=== PATIENT | male | born 2005 | race Asian ===

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

== ENCOUNTER 2023-07-18 15:45 | Emergency (ER) | payer OTHER, SELFPAY ==
[2023-07-18 15:46] VITALS: BP 122/71; PULSE 95; RESP 18; TEMP 36.6; O2SAT 100
--- NOTE | 2023-07-18 16:09 | EDS_ITS ---
HPI History of Present Illness Chief Complaint: Nausea/Vomiting Detail of Chief Complaint: Black stool Informant: patient Narrative Narrative: Patient presents secondary to concern for GI bleed with black stool. He states in the past couple weeks he had some intermittent nausea and vomiting. He states it was more like he got very gassy and would belch and vomit some with that. He has not vomited in the last 3 or 4 days but noted his stool turned green in color at that time. This morning he had dark black stool. He was sent to the ER to evaluate for possible GI bleed. Patient states when he was in [place] he was seen by a doctor secondary to increased gas. He was told he had reflux disease and was given a short course of antacids. He states this did not really help his symptoms so he never had it refilled. PFSH PFSH Medical History no medical history no medical history Home Medications amoxicillin 500 mg capsule 500 mg PO TID #21 caps 06/26/22 [Rx Last Taken Unknown] Allergy/AdvReac Type Severity Reaction Status Date / Time No Known Allergies Allergy Verified 07/18/23 15:46 Social History Smoking Status: Never smoker ROS ROS ED Constitutional Constitutional ED: Denies chills or fever(s) Eyes Eyes: Denies discharge from eye(s) ENT ENT ED: Denies discharge from eye(s), rhinorrhea or sore throat Cardiovascular Cardiovascular: Denies chest pain Respiratory/Chest Respiratory/Chest: Denies cough or dyspnea Gastrointestinal Gastrointestinal: Reports nausea and vomiting; Denies abdominal pain or diarrhea Musculoskeletal Musculoskeletal: Denies back pain or extremity pain Integumentary Denies Abrasions or rash Neurologic Neurologic: Denies headache(s) or weakness Psychiatric Psychiatric: Denies anxiety or depression Allergic/Immunologic Allergic/Immunologic ED: Denies lip swelling or urticaria EXAM Physical Exam Const Vital Signs: 07/18/23 15:46 Temperature 98 F Temperature Source Temporal Pulse Rate 95 Respiratory Rate 18 Blood Pressure 122/71 H Blood Pressure Mean 88 Pulse Ox 100 Oxygen Delivery Method Room Air Positive well nourished and well developed General Appearance ED: well developed HEENT Reports moist mucous membranes Eyes EOMs intact bilaterally Chest Wall inspection of chest normal and palpation of chest normal Resp normal respiratory effort and clear to auscultation bilaterally Cardio regular rate and regular rhythm GI non-tender Palpation: soft Extremity normal to inspection Neuro oriented x3 and no sensory deficits noted Motor Exam: strength 5/5 throughout Psych mental status grossly normal Skin no rashes or lesions noted MDM MDM MDM Narrative Medical decision making narrative: IV line established. Labwork obtained to evaluate for leukocytosis, anemia, and electrolyte derangement. Lab Data Labs: Laboratory Results - last 24 hr 07/18/23 16:15 WBC 8.4 RBC 5.17 Hgb 14.9 Hct 46.2 MCV 89.4 MCH 28.8 MCHC 32.3 RDW Std Deviation 37.2 RDW Coeff of Ramu 11.5 L Plt Count 263 MPV 8.6 Immature Gran % (Auto) 0.200 Neut % (Auto) 71.7 H Lymph % (Auto) 18.8 L [place] % (Auto) 7.8 Eos % (Auto) 0.8 Baso % (Auto) 0.7 Absolute Neuts (auto) 6.0 Absolute Lymphs (auto) 1.58 Nucleated RBC % 0 Sodium 138 Potassium 4.0 Chloride 105 Carbon Dioxide 27.0 Anion Gap 6 BUN 16 Creatinine 1.19 Est GFR (MDRD) Af Amer 100 Est GFR (MDRD) Non-Af 83 BUN/Creatinine Ratio 13.4 Glucose 100 Calcium 9.0 Total Bilirubin 1.00 Direct Bilirubin 0.33 H AST 23 ALT 22 Alkaline Phosphatase 97 Total Protein 7.7 Albumin 3.9 Globulin 3.8 Treatment and Re-Evaluation :: CBC was normal white count 8.4 with a hemoglobin of 14.9. Chemistry studies are unremarkable. BUN is normal at 16. LFTs reveal mild bump in direct bilirubin of 0.33. Otherwise values are normal. Stool sample was provided. This did test negative for blood. Test results are all discussed with the patient. He did start isotretinoin for acne in March. He is wondering if some of these symptoms he is having might be side effects of the medication. He also reports feeling emotionally numb and having difficulty processing things. We did review the common side effects of this medication together. I did recommend he speak with his prescribing doctor about this to see if he could stop it or if he needed to be tapered off of it. I will give him a copy of his lab work here as he is planning to talk to his doctor in [place] about this medication. Return instructions were provided. Discharge Plan Triage Chief Complaint: Nausea/Vomiting Other Complaint: GI Bleed ED Provider: Naomi Benito Dx/Rx/DC Orders Clinical Impression: Dark stools Prescriptions: No Action amoxicillin 500 mg capsule 500 mg PO TID Qty: 21 0RF Primary Care Provider: Care Physician,No Primary Referrals: Care Physician,No Primary [Primary Care Provider] - Activity Restrictions/Additional Instructions: As discussed, your testing does not indicate any evidence of bleeding from an ulcer, anemia, recurrent blood in your stool. Please follow-up with your physician as discussed. May return for further evaluation for any additional concerns should they arise. Disposition Disposition: Home, Self Care
[2023-07-18 16:21] LABS: Absolute Lymphocyte Count 1.58 X10^3/uL (0.83-4.51); Basophil# 0.06 X10^3/uL; Basophil% 0.7 % (0-1); Eosinophil# 0.07 X10^3/uL; Eosinophils% 0.8 % (0-5); Hematocrit 46.2 % (40-54); Hemoglobin 14.9 g/dL (13.0-16.5); Lymphocyte # 1.58 X10^3/ul (0.83-4.51); Lymphocyte % 18.8 % (19-41); Mean Corp Hgb Conc 32.3 g/dL (32-36); Mean Corpuscular Hgb 28.8 pg (27.0-32.0); Mean Corpuscular Volume 89.4 fL (80-94); Mean Platelet Vol. 8.6 fl (6.2-12.0); Monocyte# 0.66 X10^3/uL; Monocyte% 7.8 % (0-10); NRBC Flagged by Analyzer 0 % (0-5); Neutrophil # 6.02 X10^3/uL (2.7-7.7); Neutrophil % 71.7 % (47-70); Platelet Count 263 K/mm3 (150-450); RBC Distribution Width CV 11.5 % (11.6-14.6); RBC Distribution Width SD 37.2 fl (35.1-43.9); Red Blood Count 5.17 M/mm3 (4.6-6.2); White Blood Count 8.4 K/mm3 (4.4-11.0)
[2023-07-18 16:37] LABS: AST(SGOT) 23 U/L (15-37); Alanine Aminotransfer ALT/SGPT 22 U/L (16-61); Albumin, Serum 3.9 g/dL (3.2-5.0); Alkaline Phosphatase 97 U/L (45-117); Anion Gap 6 (5-15); BUN 16 mg/dL (7-18); BUN/Creat Ratio 13.4 RATIO (10-20); Bilirubin, Direct 0.33 mg/dL (0.00-0.30); Chloride 105 mmol/L (98-107); Creatinine, Serum 1.19 mg/dL (0.70-1.30); EST Glomerular Filtration Rate 83 mL/min (>60); Est Glom Filt Rate - Afr Amer 100 mL/min (>60); Globulin 3.8 g/dL (2.2-4.2); Glucose 100 mg/dL (74-106); Protein, Total 7.7 g/dL (6.4-8.2); Sodium Level 138 mmol/L (136-145)
== END 2023-07-18 17:39 | disposition home or self-care (01) ==
PROVIDERS: Emergency Provider Emergency Medicine; Visit Provider Emergency Medicine
DX: K92.2 Gastrointestinal hemorrhage, unspecified (principal); R11.2 Nausea with vomiting, unspecified; Z79.899 Other long term (current) drug therapy
CPT/HCPCS: 80048; 80076; 82274; 85025; 99283; A4216

== ENCOUNTER → 2023-12-16 | Outpatient (CLI) | payer OTHER, SELFPAY ==
--- NOTE | 2023-12-16 09:34 | US_ITS ---
STUDY: ABDOMINAL ULTRASOUND - RIGHT UPPER QUADRANT REASON FOR VISIT: Male, 18 years old GASTROENTERITIS/N/V TECHNIQUE: Ultrasound evaluation of the right upper quadrant was performed with real-time and static redmond-scale imaging. TECHNICAL QUALITY: Adequate. COMPARISON: None. FINDINGS: Liver: The liver measures 16 cm. There is normal echogenicity of the liver. The bile ducts are within normal limits. There is hepatic color flow. The direction of portal flow is hepatopetal. There is no demonstrated mass lesion. Gallbladder: Normal distended gallbladder. The gallbladder wall measures 1.4 mm. There is a negative sonographic Olivera''s sign. There is no pericholecystic fluid. There are no gallstones. Common Bile Duct (C.B.D.): The common bile duct measures 4.2 mm. Pancreas: Normal size of the head, body and tail of the pancreas. There is normal echogenicity of the pancreas. There is no demonstrated pancreatic mass or cyst. Right Kidney: Normal size of the right kidney. The right kidney measures 9.7 cm x 3.7 cm x 4.6 cm. Normal renal cortex. The right cortex measures 1.1 cm. There is no demonstrated renal mass or cyst. There is no right hydronephrosis. The spleen measures 10.3 cm x 3.1 cm x 2.8 cm. US/Abdomen Limited IMPRESSION: Normal right upper quadrant ultrasound examination. Electronically Signed: Ari De La Vega MD at 15:38 EDT ,
== END | disposition home or self-care (01) ==
LOC: US 09:32
PROVIDERS: Referring Provider Registered Nurse; Visit Provider Registered Nurse
DX: R10.11 Right upper quadrant pain (principal); K52.9 Noninfective gastroenteritis and colitis, unspecified; R11.2 Nausea with vomiting, unspecified
CPT/HCPCS: 76705

== ENCOUNTER 2025-06-15 09:02 | Emergency (ER) | payer OTHER, SELFPAY ==
[2025-06-15 09:03] VITALS: BP 117/89; PULSE 91; RESP 16; TEMP 36.5; O2SAT 99; BMI 18.3
--- NOTE | 2025-06-15 09:26 | EKG12_ITS ---
Test Reason : SYNCOPE
[2025-06-15] MEDS: 0.9% Normal Saline (1000mL) 1,000 ML 1000 ML IV (09:36)
--- NOTE | 2025-06-15 09:37 | EX.ED.DYSGE1 ---
HPI History of Present Illness Chief Complaint: Nausea/Vomiting Narrative Narrative: Patient is a 19-year-old male presenting to the emergency department for decreased appetite, nausea and vomiting for the past 4 to 5 days. Patient states that about a week ago he was placed on an antibiotic that he does not know the name of for hematuria and axillary lymphadenopathy. States he finished the antibiotic and shortly after had decreased appetite, nausea and vomiting daily. Denies any hematemesis. Denies any abdominal pain. States that yesterday he was in a dorm with his friends smoking marijuana which he does daily since summer when he stood up and shook his friend's hand and then felt lightheaded and told them that he needed to lie down. He syncopized and they caught him and sat him down on the couch. States this has happened 2 or 3 times in the past and was seen by a doctor and diagnosed with a syncopal episode. There was no seizure-like activity. He denies falling or any head trauma. Denies any fever or chills. Denies headache. Denies any focal neurologic deficits. Denies any family history of sudden cardiac . Denes chest pain. Reports mild SOB with ambulation after smoking. Denies history of PE or DVT. Denies any difficulty with bowel movements, denies constipation or diarrhea. PFSH [facility] Home Medications ?Medication ?Instructions ?Recorded ?Last Taken ?Type amoxicillin 500 mg capsule 500 mg PO TID #21 caps 06/26/22 Unknown Rx ondansetron 4 mg disintegrating 4 mg PO Q8H PRN PRN Nausea #10 tabs 06/15/25 Unknown Rx tablet Allergy/AdvReac Type Severity Reaction Status Date / Time No Known Allergies Allergy Verified 06/15/25 09:03 Social History Smoking Status: Never smoker ROS ROS ED ROS Narrative See HPI EXAM Physical Exam Narrative Exam Narrative: Vital signs: Reviewed General: Alert and oriented x 3. No acute distress HEENT: Head is normocephalic and atraumatic, sinuses nontender, pupils equal round and reactive. Nares are patent. Oropharynx and throat exams normal. Neck: Supple without lymphadenopathy nontender Cardiovascular: Regular rate and rhythm, no murmurs. No rubs or gallops. Normal S1 and S2 Respiratory: Clear to auscultation bilaterally. No wheezes, rales, rhonchi Abdominal: Soft and nontender. Normal bowel sounds. No guarding or rebound. Nonsurgical abdomen Extremities: No lower extremity edema. No tenderness. No bruising. Normal range of motion. Normal sensation. Skin: No rash or redness. Neurological: Cranial nerves II through XII are grossly intact. Normal strength and sensation. Normal cerebellar function The rest of the physical exam is unremarkable Const Vital Signs: 06/15/25 09:03 06/15/25 10:09 06/15/25 11:02 Temperature 97.7 F L Temperature Source Oral Pulse Rate 91 65 Pulse Rate [Lying] 95 Pulse Rate [Sitting (for 1 minute prior to obtaining)] 101 H Pulse Rate [Standing (for 1 minute prior to obtaining)] 74 Respiratory Rate 16 15 Blood Pressure 117/89 H 133/76 H Blood Pressure [Lying] 116/82 H Blood Pressure [Sitting (for 1 minute prior to obtaining)] 137/84 H Blood Pressure [Standing (for 1 minute prior to obtaining)] 136/79 H Blood Pressure Mean 98 95 Blood Pressure Mean [Lying] 93 Blood Pressure Mean [Sitting (for 1 minute prior to obtaining)] 101 Blood Pressure Mean [Standing (for 1 minute prior to obtaining)] 98 Pulse Ox 99 100 Oxygen Delivery Method Room Air Room Air 06/15/25 11:58 Temperature 97.8 F Temperature Source Pulse Rate 65 Pulse Rate [Lying] Pulse Rate [Sitting (for 1 minute prior to obtaining)] Pulse Rate [Standing (for 1 minute prior to obtaining)] Respiratory Rate 15 Blood Pressure 133/76 H Blood Pressure [Lying] Blood Pressure [Sitting (for 1 minute prior to obtaining)] Blood Pressure [Standing (for 1 minute prior to obtaining)] Blood Pressure Mean 95 Blood Pressure Mean [Lying] Blood Pressure Mean [Sitting (for 1 minute prior to obtaining)] Blood Pressure Mean [Standing (for 1 minute prior to obtaining)] Pulse Ox 100 Oxygen Delivery Method MDM MDM MDM Narrative Medical decision making narrative: Patient is a 19-year-old male presenting to the emergency department for decreased appetite, nausea and vomiting for the past 4 to 5 days. Patient was seen and examined. Vitals are stable. Patient resting in bed comfortably no acute distress. Fluid bolus and Zofran given for symptomatic control. Differential includes but is not limited to: Vasovagal episode, orthostatic hypotension, cannabis hyperemesis, viral illness, cardiac dysrhythmia. Given the patient's history and his recent nausea and vomiting with decreased appetite and p.o. intake the likely cause is orthostatic hypotension causing the syncopal episode. Fluid bolus and Zofran given for symptomatic control. EKG, chest x-ray and basic blood work including electrolytes were obtained. EKG shows sinus bradycardia at a rate of 59 with no ischemic changes. No evidence of Brugada or WPW explaining the syncopal episode. No dysrhythmia. CBC with no leukocytosis and normal hemoglobin. BMP with no significant abnormalities. Glucose within normal limits. Magnesium within normal limits. Chest x-ray reviewed by myself, no opacities, pneumothorax or widened mediastinum. Radiology read with hyperinflation, no focal infiltrate is seen. Patient was reevaluated. Tolerated po without difficulty. Updated on the negative labs and imaging. I will prescribe the patient Zofran for home to take as needed every 8 hours for nausea and vomiting. Instructed to drink lots of fluids. Recommended decreasing or abstaining from cannabis use given this may be causing his symptoms. He is agreeable with the plan. He was given primary care follow-up because he does not have a established primary care. Patient discharged from the Emergency Department. I do not feel that the patient's evaluation reveals any acute reason for admission at this time. I instructed them to either follow-up with their primary care physician or promptly return to the Emergency Department for reevaluation should symptoms worsen or new symptoms develop. I explained what symptoms would indicate the need to return to the emergency department. Shared decision making was used. The patient voiced understanding of the treatment plan and is agreeable with it. Clinical impression Nausea and vomiting Syncopal episode History & Record Review Discussion w/independent historian: Patient Lab Data Attestation: I reviewed the patient's lab results. Labs: Laboratory Results - last 24 hr 06/15/25 09:37 WBC 7.7 RBC 5.23 Hgb 15.5 Hct 46.6 MCV 89.1 MCH 29.6 MCHC 33.3 RDW Std Deviation 38.0 RDW Coeff of Ramu 11.8 Plt Count 307 MPV 8.4 Immature Gran % (Auto) 0.400 Neut % (Auto) 54.0 Lymph % (Auto) 32.4 [place] % (Auto) 9.1 Eos % (Auto) 3.3 Baso % (Auto) 0.8 Absolute Neuts (auto) 4.2 Absolute Lymphs (auto) 2.49 Nucleated RBC % 0 Sodium 137 Potassium 4.2 Chloride 100 Carbon Dioxide 28.0 Anion Gap 9 BUN 15 Creatinine 1.03 Estim Creat Clear Calc 106.99 Est GFR (MDRD) Non-Af 106 BUN/Creatinine Ratio 14.5 Glucose 101 H Calcium 9.5 Magnesium 2.2 Radiography Diagnostic Testing: Clinical Impression(s) from Imaging Studies Chest X-Ray 06/15/25 09:45 IMPRESSION: Hyperinflation. No focal infiltrate is seen. Reading Location: [id number] Discharge Plan Triage Chief Complaint: Nausea/Vomiting ED Provider: Guillermina Nye Dx/Rx/DC Orders Clinical Impression: Nausea & vomiting, Cannabis abuse, Episode of syncope Instructions: ED Cyclic Vomiting Syndrome, ED Fainting, Vagal Reaction, ED Vomiting (Adult) Prescriptions: New ondansetron 4 mg tablet,disintegrating 4 mg PO Q8H PRN PRN (Reason: Nausea) Qty: 10 0RF No Action amoxicillin 500 mg capsule 500 mg PO TID Qty: 21 0RF Primary Care Provider: Care Physician,No Primary Referrals: Jackson Szymanski MD [Med Staff - Active Staff, Family Practice] - As soon as possible Care Physician,No Primary [Primary Care Provider, Medical] Activity Restrictions/Additional Instructions: Take the Zofran every 8 hours as needed for nausea and vomiting. Continue drinking lots of fluids at home. Please decrease or abstain from marijuana use. This may be causing her symptoms. Your evaluation in the Emergency Department did not reveal any acute reason for admission. However, I want to emphasize that you may be early in the course of a disease process or illness even if it is not present. For this reason you should follow-up within 24 hours for reevaluation with either your primary care physician or if necessary back here in the Emergency Department. You should return to the Emergency Department immediately if your symptoms worsen or new symptoms develop. Print Language: Indian Disposition Disposition: Home, Self Care Discharge Date/Time: 06/15/25 12:01
[2025-06-15 09:45] LABS: Hematocrit 46.6 % (40-54); Hemoglobin 15.5 g/dL (13.0-16.5); Immature Granulocytes Count 0.030 X10^3/uL (0.0-0.0); Mean Corp Hgb Conc 33.3 g/dL (32-36); Mean Corpuscular Volume 89.1 fL (80-94); Mean Platelet Vol. 8.4 fl (6.2-12.0); NRBC Flagged by Analyzer 0 % (0-5); Platelet Count 307 K/mm3 (150-450); RBC Distribution Width CV 11.8 % (11.6-14.6); RBC Distribution Width SD 38.0 fl (35.1-43.9); Red Blood Count 5.23 M/mm3 (4.6-6.2); White Blood Count 7.7 K/mm3 (4.4-11.0)
--- NOTE | 2025-06-15 09:45 | RAD_ITS ---
PROCEDURE: RAD/Chest PA and Lateral
[2025-06-15 10:06] LABS: Anion Gap 9 (5-15); BUN 15 mg/dL (4-19); BUN/Creat Ratio 14.5 RATIO (10-20); Calcium,Total 9.5 mg/dL (7.6-11.0); Carbon Dioxide 28.0 mmol/L (21.0-32.0); Chloride 100 mmol/L (98-108); Estimated Creatinine Clearance 106.99 ml/min (50-250); Glucose 101 mg/dL (70-99); Magnesium 2.2 mg/dL (1.5-2.2); Potassium 4.2 mmol/L (3.3-5.1)
[2025-06-15 10:09] VITALS: BP 116/82; BP 136/79; BP 137/84; PULSE 101; PULSE 74; PULSE 95
[2025-06-15 11:02] VITALS: BP 133/76; PULSE 65; RESP 15; O2SAT 100
[2025-06-15 11:58] VITALS: BP 133/76; PULSE 65; RESP 15; TEMP 36.6; O2SAT 100
== END 2025-06-15 12:01 | disposition home or self-care (01) ==
PROVIDERS: Emergency Provider Student in an Organized Health Care Education/Training Program; Visit Provider Student in an Organized Health Care Education/Training Program
DX: R11.2 Nausea with vomiting, unspecified (principal); R55 Syncope and collapse; F12.10 Cannabis abuse, uncomplicated
CPT/HCPCS: 71046; 80048; 83735; 85025; 93005; 96361; 96374; 99285; A4216; J2405